=== PATIENT | male | born 1995 | race Hispanic/Latino ===

== ENCOUNTER 2024-09-23 15:03 | Emergency (ER) | payer SELFPAY ==
[~2024-09-23] VITALS: Ht 167.6 cm; Wt 104.8 kg
[2024-09-23 15:39] VITALS: BP 113/70; PULSE 73; RESP 16; TEMP 99.1; O2SAT 96
[2024-09-23 15:46] LABS: BASOPHILS # (AUTO) 0.04 K/uL (0.00-0.20); BASOPHILS % (AUTO) 0.3 % (0.0-5.0); EOSINOPHILS # (AUTO) 0.08 K/uL (0.00-0.70); EOSINOPHILS % (AUTO) 0.6 % (0.0-8.0); HEMATOCRIT 45.7 % (42-54); IMMATURE GRANULOCYTE ABSOLUTE 0.03 K/uL (0-1); LYMPHOCYTES # (AUTO) 2.6 K/uL (1.0-4.8); LYMPHOCYTES % (AUTO) 20.6 % (21.0-51.0); MEAN CORPUSCULAR HEMOGLOBIN 30.2 pg (27.0-33.0); MEAN CORPUSCULAR HGB CONC 34.4 g/dL (32.0-36.0); MEAN CORPUSCULAR VOLUME 87.9 fL (79-99); MONOCYTES # (AUTO) 1.1 K/uL (0.1-1.0); MONOCYTES % (AUTO) 8.6 % (3.0-13.0); NEUTROPHILS # (AUTO) 8.6 K/uL (1.8-7.7); NEUTROPHILS % (AUTO) 69.7 % (40.0-77.0); PLATELET COUNT (AUTO) 243 K/uL (130-400); RED CELL DISTRIBUTION WIDTH 13.1 % (11.0-15.5); WHITE BLOOD COUNT (AUTO) 12.4 K/uL (4.8-10.8)
[2024-09-23 15:57] LABS: CREATININE 1.2 mg/dL (0.5-1.3); POTASSIUM 3.4 mmol/L (3.5-5.1)
[2024-09-23 16:03] LABS: BILIRUBIN,DIRECT 0.1 mg/dL (0.0-0.3); BILIRUBIN,TOTAL 0.4 mg/dL (0.2-1.0); TOTAL PROTEIN, SERUM 7.8 g/dL (6.0-8.3)
[2024-09-23] MEDS ORDERED: DICY20TA2 PO (16:47)
--- NOTE | 2024-09-23 16:47 | ERN ---
ED Note History of Present Illness Stated Complaint: ABDOMINAL PAIN Chief Complaint: Abdominal Pain Time Seen by MD: 15:05 Time Seen by Midlevel: 15:08 Dictation: 29-year-old male with no past medical history coming in complaining of intermittent abdominal cramping for the last three days. Patient states this started on Monday after he had a large meal. Denies any fever, bloody stools or bloody emesis. Allergies: Coded Allergies: No Known Allergies (Unverified Allergy, Unknown, 09/23/24) Home Meds Active Scripts Dicyclomine HCl (Bentyl) 20 Mg Tab, 1 TAB PO BID for irritable bowel symptoms for 10 Days, #20 TAB 0 Refills Prov:JEISON JO NP 09/23/24 Past Medical History Past Medical History: No Pertinent History Surgical History: None Review of System Dictation Constitutional: Negative for fever,chills, and weight loss Eyes: Negative for injury, pain,redness, and discharge ENT: Negative for injury,pain or swelling Cardiovascular: Negative for chest pain, palpitations, and edema Respiratory: Negative for shortness of breath, cough, and wheezing, Abdomen/GI: Complaining of intermittent abdominal cramping and vomiting Back: Negative for injury and pain : Negative for injury, bleeding and discharge MS/Extremity: Negative for injury and deformity Skin: Negative for rash, and discoloration Neuro: Negative for headache, weakness, numbness, tingling, and seizure Psych: Negative for suicide ideation, homicidal ideation, and hallucinations Review of Systems: was completed Initial Vital Sign VS Vital Signs Date Time Temp Pulse Resp B/P (MAP) Pulse Ox O2 Delivery O2 Flow Rate FiO2 09/23/24 15:07 99.1 73 16 113/70 96 Room Air 0 09/23/24 15:39 21 Physical Exam Dictation General: awake, alert, NAD Head/Face: Normocephalic, atraumatic Eyes: PERRL, EOMI, vision at baseline ENT: oral cavity clear, TMs clear, no signs of infection Neck: Trachea midline, supple, no nuchal rigidity Cardiovascular: RRR, normal S1/S2, No MRGs, no JVD Respiratory: CTAB, no respiratory distress, No rales or wheezes Abdomen: Soft, non-tender, non-distended, normal bowel sounds, no guarding or rebound. Skin: Warm, dry, normal turgor, no rash MS/Extremity: Pulses equal, no cyanosis, neurovascular intact, FROM Neuro: COAx4, GCS 15, strength 5/5, CN 2-12 intact, normal cerebellar exam, normal gait, Psych: Normal behavior, mood, and affect normal Results (Laboratory/Radiology) Laboratory/Radiology Laboratory Tests Test 09/23/24 15:40 White Blood Count 12.4 K/uL (4.8-10.8) H Red Blood Count 5.20 MIL/uL (4.50-6.20) Hemoglobin 15.7 g/dL (14.0-18.0) Hematocrit 45.7 % (42-54) Mean Corpuscular Volume 87.9 fL (79-99) Mean Corpuscular Hemoglobin 30.2 pg (27.0-33.0) Mean Corpuscular Hemoglobin Concent 34.4 g/dL (32.0-36.0) Red Cell Distribution Width 13.1 % (11.0-15.5) Platelet Count 243 K/uL (130-400) Mean Platelet Volume 10.3 fL (7.5-10.5) Immature Granulocyte % (Auto) 0.2 % (0-1) Neutrophils (%) (Auto) 69.7 % (40.0-77.0) Lymphocytes (%) (Auto) 20.6 % (21.0-51.0) L Monocytes (%) (Auto) 8.6 % (3.0-13.0) Eosinophils (%) (Auto) 0.6 % (0.0-8.0) Basophils (%) (Auto) 0.3 % (0.0-5.0) Neutrophils # (Auto) 8.6 K/uL (1.8-7.7) H Lymphocytes # (Auto) 2.6 K/uL (1.0-4.8) Monocytes # (Auto) 1.1 K/uL (0.1-1.0) H Eosinophils # (Auto) 0.08 K/uL (0.00-0.70) Basophils # (Auto) 0.04 K/uL (0.00-0.20) Absolute Immature Granulocyte (auto 0.03 K/uL (0-1) Nucleated Red Blood Cells 0.0 % (0.0-0.19) Sodium Level 140 mmol/L (136-145) Potassium Level 3.4 mmol/L (3.5-5.1) L Chloride Level 104 mmol/L (101-111) Carbon Dioxide Level 30 mmol/L (21-32) Blood Urea Nitrogen 15 mg/dL (7-18) Creatinine 1.2 mg/dL (0.5-1.3) Glomerular Filtration Rate Calc 83 mL/min (>90) Random Glucose 113 mg/dL (70-105) H Total Calcium 9.0 mg/dL (8.5-10.1) Total Bilirubin 0.4 mg/dL (0.2-1.0) Direct Bilirubin 0.1 mg/dL (0.0-0.3) Aspartate Amino Transf (AST/SGOT) 24 U/L (10-37) Alanine Aminotransferase (ALT/SGPT) 48 U/L (12-78) Alkaline Phosphatase 67 U/L (50-136) Total Protein 7.8 g/dL (6.0-8.3) Albumin 4.0 g/dL (3.5-5.0) Lipase 31 U/L (16-77) Labs Reviewed?: Yes ED Course ED Course Orders Procedure Category Date Status Time Cbc With Differential LAB 09/23/24 Complete 15:19 Basic Metabolic Panel LAB 09/23/24 Complete 15:19 Hepatic Function Panel LAB 09/23/24 Complete 15:19 Lipase LAB 09/23/24 Complete 15:19 Ketorolac PHA 09/23/24 Complete Tromethamine 15mg/Ml 15:19 Dicyclomine Hcl PHA 09/23/24 Complete (Bentyl 20mg Inj) 15:19 Ondansetron Odt 4mg PHA 09/23/24 Complete Tab (Zofran 4mg Odt) 15:19 Current Medications Medications (Trade) Dose Ordered Sig/[place] Route PRN Reason Start Time Stop Time Status Last Admin Dose Admin Dicyclomine HCl (Bentyl 20mg Inj) 20 mg ONCE STAT IM 09/23/24 15:19 09/23/24 15:23 DC 09/23/24 17:33 Ketorolac Tromethamine (toRADol) 15 mg ONCE STAT IM 09/23/24 15:19 09/23/24 15:23 DC 09/23/24 17:33 Ondansetron HCl (zoFRAN 4MG ODT) 4 mg ONCE STAT SL 09/23/24 15:19 09/23/24 15:23 DC 09/23/24 17:33 Vital Signs Date Time Temp Pulse Resp B/P (MAP) Pulse Ox O2 Delivery O2 Flow Rate FiO2 09/23/24 15:39 99.1 73 16 113/70 96 Room Air* 0 21 09/23/24 15:07 99.1 73 16 113/70 96 Room Air 0 Medical Decision Making MDM MDM: 29-year-old male with no past medical history coming in complaining of intermittent abdominal cramping for the last three days. Patient states this started on Monday after he had a large meal. Denies any fever, bloody stools or bloody emesis. Lab work unremarkable. After medication for pain patient states she feels much better. Discussed with the patient was more than likely food poisoning and can last from anywhere 7-10 days. Educated to take symptomatic control [id number]. Discussed follow up with PCP in 1-2 days otherwise return to the hospital if you have worsening symptoms. Patient verbalized understanding, answered all questions. Differential diagnosis: Pancreatitis, gastroenteritis, Rationale: Tests considered and ordered secondary to shared decision making include: Previous outside records reviewed: Old ER visits. Risk of complication and/or morbidity or mortality of patient management: None Medications-Per medication reconciliation Need for hospitalization: Patient does not meet criteria for hospitalization. Need for emergency major/minor surgery: No There are no social concerns with this patient. Prescription drug management Prescriptions will include symptomatic care Patient's prior external medical records from other ER visits were reviewed by me as indicated. Prior testing and results from previous visits were reviewed. Prior tests were taken into account with medical decision making and resource utilization, independent historian/historians were used to obtain complete medical history. I independently interpreted the test that were performed, results were reviewed by me and considered findings on radiology if ordered. Medical management and examination interpretation discussions were had by me with other qualified healthcare professionals as indicated for the patient's care. DX & DISP Disposition: Discharge Departure Impression: Primary Impression: Gastroenteritis Condition: Stable Scripts Dicyclomine HCl (Bentyl) 20 Mg Tab 1 TAB PO BID for irritable bowel symptoms for 10 Days, #20 TAB 0 Refills Prov: JEISON JO [employer] 09/23/24 Additional Instructions: Take the medication for pain as prescribed. Avoid any fried, greasy, spicy foods Referrals: SELF,REFERRAL (PCP) Time of Disposition: 16:45 I have reviewed the case, and I agree with, Diagnosis and Plan JEISON JO NP September 23, 2024 16:47 NITZA STOKES DO September 24, 2024 07:47
[2024-09-23] MEDS: ondanSETRON ODT 4MG TAB SL STA (17:33)
[2024-09-23] MEDS: DICYCLOMINE 20MG (10MG/ML) AMP IM STA (17:33)
[2024-09-23] MEDS: ketOROlac 15MG/ML VIAL (15MG/ML) IM STA (17:33)
== END 2024-09-23 17:55 | disposition home or self-care (01) ==
LOC: EDH 15:03
DX: K52.9 Noninfective gastroenteritis and colitis, unspecified (principal)
CPT/HCPCS: 99284; 80076; 80048; 83690; 85025; 36415; 96372 ×2; J1885; J0500